=== PATIENT | female | born 1995 | race African-American/Black ===

== ENCOUNTER 2017-05-04 14:51 | Emergency (ER) | payer SELFPAY ==
[2017-05-04 14:52] VITALS: BP 111/65; PULSE 80; RESP 16; TEMP 98.7; O2SAT 100
--- NOTE | 2017-05-04 15:28 | PD ---
HPI Chief Complaint: Cold / Flu Symptoms Time Seen by Provider: 15:13 Travel History International Travel<30 days: No Contact w/Intl Traveler<30days: No Traveled to known affect area: No History of Present Illness HPI 21-year-old female presents to the emergency room for evaluation of chest pain, headache, and congestion for the past month. Patient states chest pain is intermittent, dull, located at the top of her sternum. Worse when she lies down or occasionally with deep breathing. No radiation of symptoms. States it has been gradually getting worse and worse especially over the past week. Headache is worse when she leans forward. Localized to the right side of her head. She has been taking Tylenol for her headache with excellent relief in symptoms but the headache keeps coming back. She has had associated nasal congestion and cough. Denies fever, chills, nausea, vomiting. No significant family history of cardiac disease; grandmother has CHF and previous heart attacks. Denies history of asthma or significant shortness of breath. Denies recent immobilization, recent long travel, unilateral leg swelling, exogenous estrogen use. PFSH Past Medical History ?: Not LMP: LAST WEEK Past Surgical History Tonsillectomy: Yes Social History Alcohol Use: Yes Tobacco Use: No Substance Use: Yes Allergies-Medications (Allergen,Severity, Reaction): Coded Allergies: No Known Allergies (Unverified , 05/04/17) Reported Meds & Prescriptions Reported Meds & Active Scripts Active No Active Prescriptions or Reported Medications Review of Systems Except as stated in HPI: all other systems reviewed are Neg Physical Exam Narrative GENERAL: Well-nourished, well-developed female in no acute distress. Afebrile. Ambulatory. SKIN: Focused skin assessment warm/dry. HEAD: Normocephalic. EYES: No scleral icterus. No injection or drainage. NECK: Supple, trachea midline. No JVD or lymphadenopathy. ENT: Mucosa pink and moist. No erythema or exudates. No uvular edema. No uvular , palatal, or tonsillar deviation. Airway patent. Nasal turbinates appear normal without nasal blood, purulent drainage or septal hematoma. EARS: Bilateral pinnae and external canals appear within normal limits. Bilateral tympanic membranes without erythema, dullness or perforation. CARDIOVASCULAR: Regular rate and rhythm without murmurs, gallops, or rubs. RESPIRATORY: Breath sounds equal bilaterally. No accessory muscle use. No crackles, rales, wheezes, or rhonchi. Data Data Last Documented VS Vital Signs Date Time Temp Pulse Resp B/P (MAP) Pulse Ox O2 Delivery O2 Flow Rate FiO2 05/04/17 14:52 98.7 80 16 111/65 (80) 100 Room Air Orders Orders Chest, Pa & Lat (05/04/17 ) Electrocardiogram (05/04/17 ) MDM Medical Decision Making Medical Screen Exam Complete: Yes Emergency Medical Condition: Yes Medical Record Reviewed: Yes Differential Diagnosis Sinusitis, unlikely, CAD unlikely, pleuritis, GERD Narrative Course 21-year-old female presents to the emergency room for evaluation of several, nonspecific complaints including ongoing for the past one month. Her greatest complaint is intermittent, dull, aching superior sternal chest pain without radiation. No associated cardiac symptoms. No significant family or personal history of cardiac disease. No significant risk factors for cardiac disease. EKG shows sinus rhythm with arrhythmia at 67 beats per minute. No ST changes. I have no suspicion for CAD. No increased work of breathing. Vital signs stable. Patient 100% on room air. Lung sounds clear and equal bilaterally. No risk factors for PE. Chest x-ray is completely unremarkable. Given symptoms have been ongoing for 1 month, I see no indication for emergent lab work at this time. Patient also complains of one-month history of right-sided head pressure and sinus pressure that is worse when she leans forward; in conjunction with mild cough and duration of symptoms, she'll be treated empirically for sinusitis. This could be contributing to her chest pain or she may be experiencing GERD. Discharged with prescriptions for Augmentin and omeprazole. Told to follow up with PCP or return for worsening symptoms. She understands and agrees to plan. Diagnosis Primary Impression: Sinusitis Qualified Codes: J01.40 - Acute pansinusitis, unspecified Additional Impression: Chest pain Qualified Codes: R07.89 - Other chest pain Referrals: Primary Care Physician Additional Instructions: Augmentin as directed, until gone. Omeprazole as directed. Follow-up with PCP for outpatient labs. Scripts No Active Prescriptions or Reported Meds Disposition: 01 DISCHARGE HOME Condition: Stable Amanda Choi May 04, 2017 15:28
--- NOTE | 2017-05-04 15:57 | RADRPT ---
EXAM DATE/TIME: 05/04/2017 15:46 [facility] COMPARISON: No previous studies available for comparison. INDICATIONS : Shortness of breath and chest pressure for 1 week. MEDICAL HISTORY : None. SURGICAL HISTORY : None. ENCOUNTER: Initial ACUITY: 1 week PAIN SCORE: 6/10 LOCATION: Bilateral chest FINDINGS: PA and lateral views of the chest demonstrate a normal-sized cardiac silhouette. There is no effusion , consolidation, or pneumothorax. The bones and soft tissues demonstrate no acute abnormality. CONCLUSION: No acute cardiopulmonary abnormality is identified. Pradeep Sher MD on May 04, 2017 at 15:55 Board Certified Radiologist. This report was verified electronically.
[2017-05-04] MEDS ORDERED: OMEP20TA93 PO (16:11)
[2017-05-04] MEDS ORDERED: AUGM875T3 PO (16:11)
--- NOTE | 2017-05-04 16:56 | EKG ---
Date Performed: 05/04/2017 Time Performed: 15:38:37 PTAGE: 21 years EKG: Sinus rhythm WITH SINUS ARRHYTHMIA NORMAL ECG INTERPRETATION BASED ON A DEFAULT AGE OF 42 YEARS NO PREVIOUS TRACING DOCTOR: Doc Bowen Interpretating Date/Time 05/04/2017 16:55:22
== END 2017-05-04 16:58 | disposition home or self-care (01) ==
LOC: NEPK 14:51
DX: J01.40 Acute pansinusitis, unspecified (principal); R07.89 Other chest pain
CPT/HCPCS: 71020; 93005; 99284

== ENCOUNTER 2017-06-22 17:30 | Emergency (ER) | payer MEDICAID ==
[~2017-06-22] VITALS: Ht 149.9 cm; Wt 70.0 kg
[~2017-06-22 17:30] MED LIST: AUGM875T3 PO; OMEP20TA93 PO
[2017-06-22 17:31] VITALS: BP 125/74; PULSE 77; RESP 16; TEMP 98.5; O2SAT 99
[2017-06-22 18:27] LABS: BASOPHIL % 0.4 % (0.0-2.0); EOSINOPHIL % 0.6 % (0.0-4.0); HEMATOCRIT 40.7 % (35.0-46.0); HEMOGLOBIN 13.8 GM/DL (11.6-15.3); LYMPH % 27.4 % (9.0-44.0); LYMPHOCYTE # 2.1 TH/MM3 (1.0-4.8); MEAN CELL VOLUME 88.1 FL (80.0-100.0); MEAN CORPUSCULAR HEMOGLOBIN 29.9 PG (27.0-34.0); MONO % 5.8 % (0.0-8.0); MONOCYTE # 0.4 TH/MM3 (0-0.9); NEUT % 65.8 % (16.0-70.0); PLATELET COUNT 264 TH/MM3 (150-450); RED BLOOD COUNT 4.62 MIL/MM3 (4.00-5.30); RED CELL DISTRIBUTION WIDTH 12.2 % (11.6-17.2); WHITE BLOOD COUNT 7.6 TH/MM3 (4.0-11.0)
[2017-06-22 18:43] LABS: BACTERIA, URINE MANY /hpf; BILIRUBIN, URINE NEG (NEG); BLOOD, URINE SMALL (NEG); GLUCOSE,URINE NEG (NEG); KETONE, URINE TRACE mg/dL (NEG); MUCUS URINE MANY /lpf (OCC); NITRITE,URINE NEG (NEG); PH, URINE 5.5 (5.0-8.5); SQUAMOUS EPITHELIAL CELL URINE 6 /hpf (0-5); URINE COLOR YELLOW (YELLW/STRAW); URINE LEUKOCYTE ESTERASE LARGE (NEG); WHITE BLOOD CELL CLUMPS FEW
[2017-06-22 18:50] LABS: ALBUMIN 4.2 GM/DL (3.4-5.0); ALT (GPT) 11 U/L (9-42); AST (GOT) 8 U/L (16-38); BICARBONATE 29.4 MEQ/L (21.0-32.0); BLOOD UREA NITROGEN 9 MG/DL (7-18); CALCIUM 8.8 MG/DL (8.5-10.1); CHLORIDE 107 MEQ/L (98-107); GLOMERULAR FILTRATION RATE 112 ML/MIN (>89); GLUCOSE,RANDOM 99 MG/DL (74-106); LIPASE 75 U/L (73-393); SODIUM (NA) 142 MEQ/L (136-145)
[2017-06-22 18:54] LABS: ALKALINE PHOSPHATASE 64 U/L (45-117); TOTAL BILIRUBIN ADULT 0.9 MG/DL (0.2-1.0); TOTAL PROTEIN 8.1 GM/DL (6.4-8.2)
[2017-06-22] MEDS ORDERED: BACT800T5 PO (20:22)
[2017-06-22] MEDS ORDERED: SULFAMETHOXAZOLE-TRIMETHOPRIM DS 800-160 MG TAB PO ONE (20:30)
--- NOTE | 2017-06-22 20:34 | PD ---
HPI . abdominal pain Chief Complaint: Abdominal Pain Time Seen by Provider: 20:08 Travel History International Travel<30 days: No Contact w/Intl Traveler<30days: No Traveled to known affect area: No History of Present Illness HPI 21 yo F presents to ED with cc of abdominal pain. She states her urine has been concentrated and had a bad smell for the last week. She denies burning, frequency or urgency. She is also complaining of vaginal bleeding but denies discharge. She states she has had irregular menstrual cycles her entire life varying in length from 3 days to 2 weeks, in heaviness from spotting to profuse bright red blood and varying in occurrence between 1 and 2 times a month. Her LMP started 06/05/17 and has continued till today. She denies as she has had one female partner for the past year. She has a history of chlamydia treated 2 years ago. [facility] Past Medical History Medical History: Denies Significant Hx Immunizations Current: Yes ?: Not LMP: 06/05/17 Past Surgical History Tonsillectomy: Yes Social History Alcohol Use: Yes Tobacco Use: No Substance Use: Yes Allergies-Medications (Allergen,Severity, Reaction): Coded Allergies: No Known Allergies (Unverified , 05/04/17) Reported Meds & Prescriptions Reported Meds & Active Scripts Active Bactrim DS (Sulfamethoxazole-Trimethoprim) 800-160 Mg Tab 1 Tab PO BID Omeprazole 20 Mg Tab 20 Mg PO DAILY Augmentin (Amoxicillin-Clavulanate) 875-125 Mg Tab 1 Tab PO BID Review of Systems General / Constitutional: No: Fever, Chills Genitourinary: Positive: Pelvic Pain, Dysmenorrhea, Menorrhagia, Metorrhagia, Vaginal Bleeding, No: Urgency, Frequency, Hematuria, Incontinence, Dyspareunia, Discharge Physical Exam Narrative GENERAL: young female in no acute distress, sitting comfortably in bed SKIN: Warm and dry. HEAD: Normocephalic. EYES: No scleral icterus. No injection or drainage. NECK: Supple, trachea midline. No JVD or lymphadenopathy. CARDIOVASCULAR: Regular rate and rhythm without murmurs, gallops, or rubs. RESPIRATORY: Breath sounds equal bilaterally. No accessory muscle use. GASTROINTESTINAL: Abdomen soft, nondistended. Mildly tender in bilateral pelvis MUSCULOSKELETAL: No cyanosis, or edema. BACK: Nontender without obvious deformity. No CVA tenderness. Data Data Last Documented VS Vital Signs Date Time Temp Pulse Resp B/P (MAP) Pulse Ox O2 Delivery O2 Flow Rate FiO2 06/22/17 20:29 06/22/17 17:31 98.5 77 16 99 Orders Orders Complete Blood Count With Diff (06/22/17 17:56) Comprehensive Metabolic Panel (06/22/17 17:56) Urinalysis - C+S If Indicated (06/22/17 17:56) Lipase (06/22/17 17:56) Beta Hcg (Quant/Titer) (06/22/17 17:56) Urine Culture (06/22/17 18:04) Ed Discharge Order (06/22/17 20:21) Sulfamet-Trimeth Ds 800-160 Mg (Bactrim (06/22/17 20:30) Labs Laboratory Tests Test 06/22/17 18:04 06/22/17 18:07 Urine Color YELLOW Urine Turbidity HAZY Urine pH 5.5 Urine Specific [place] 1.020 Urine Protein 30 mg/dL Urine Glucose (UA) NEG mg/dL Urine Ketones TRACE mg/dL Urine Occult Blood SMALL Urine Nitrite NEG Urine Bilirubin NEG Urine Urobilinogen 2.0 MG/DL Urine Leukocyte Esterase LARGE Urine RBC 14 /hpf Urine WBC /hpf Urine WBC Clumps FEW Urine Squamous Epithelial Cells 6 /hpf Urine Bacteria MANY /hpf Urine Mucus MANY /lpf Microscopic Urinalysis Comment CATH-CULTURE IND White Blood Count 7.6 TH/MM3 Red Blood Count 4.62 MIL/MM3 Hemoglobin 13.8 GM/DL Hematocrit 40.7 % Mean Corpuscular Volume 88.1 FL Mean Corpuscular Hemoglobin 29.9 PG Mean Corpuscular Hemoglobin Concent 34.0 % Red Cell Distribution Width 12.2 % Platelet Count 264 TH/MM3 Mean Platelet Volume 8.0 FL Neutrophils (%) (Auto) 65.8 % Lymphocytes (%) (Auto) 27.4 % Monocytes (%) (Auto) 5.8 % Eosinophils (%) (Auto) 0.6 % Basophils (%) (Auto) 0.4 % Neutrophils # (Auto) 5.0 TH/MM3 Lymphocytes # (Auto) 2.1 TH/MM3 Monocytes # (Auto) 0.4 TH/MM3 Eosinophils # (Auto) 0.0 TH/MM3 Basophils # (Auto) 0.0 TH/MM3 CBC Comment DIFF FINAL Differential Comment Blood Urea Nitrogen 9 MG/DL Creatinine 0.80 MG/DL Random Glucose 99 MG/DL Total Protein 8.1 GM/DL Albumin 4.2 GM/DL Calcium Level 8.8 MG/DL Alkaline Phosphatase 64 U/L Aspartate Amino Transf (AST/SGOT) 8 U/L Alanine Aminotransferase (ALT/SGPT) 11 U/L Total Bilirubin 0.9 MG/DL Sodium Level 142 MEQ/L Potassium Level 3.3 MEQ/L Chloride Level 107 MEQ/L Carbon Dioxide Level 29.4 MEQ/L Anion Gap 6 MEQ/L Estimat Glomerular Filtration Rate 112 ML/MIN Lipase 75 U/L Human Chorionic Gonadotropin, Quant LESS THAN 1 MIU/ML MDM Medical Decision Making Medical Screen Exam Complete: Yes Emergency Medical Condition: Yes Differential Diagnosis Urinary tract infection, pyelonephritis, cervicitis, abnormal uterine bleeding, fibroids, endometriosis, PID Narrative Course Patient presented with cc of foul smelling urine and abnormal uterine bleeding. CBC was within normal limits. She was found to have a UTI on urinalysis. CVA tenderness negative. She was treated with Bactrim and advised to follow up with outpatient at the [facility] for her chronic abnormal uterine bleeding. Diagnosis Primary Impression: UTI (urinary tract infection) Qualified Codes: N39.0 - Urinary tract infection, site not specified; R31.9 - Hematuria, unspecified Additional Impression: Menometrorrhagia Referrals: [facility] call for appointment Scripts Sulfamethoxazole-Trimethoprim (Bactrim DS) 800-160 Mg Tab 1 TAB PO BID for Infection, #6 TAB 0 Refills Prov: Sean Simmons MD 06/22/17 Disposition: DISCHARGE HOME Condition: Stable Sean Simmons MD Jun 22, 2017 20:34
== END 2017-06-22 21:10 | disposition home or self-care (01) ==
LOC: NEPD 17:30
DX: N39.0 Urinary tract infection, site not specified (principal); R31.9 Hematuria, unspecified; N92.1 Excessive and frequent menstruation with irregular cycle; B96.20 Unspecified Escherichia coli [E. coli] as the cause of diseases classified elsewhere
CPT/HCPCS: 80053; 81001; 83690; 84702; 85025; 87077; 87086; 87186; 99283

== ENCOUNTER 2017-07-30 04:33 | Emergency (ER) | payer MEDICAID, OTHER ==
[~2017-07-30] VITALS: Ht 149.9 cm; Wt 68.0 kg
[~2017-07-30 04:33] MED LIST changes: +BACT800T5 PO
[2017-07-30 04:38] VITALS: BP 120/81; PULSE 87; RESP 16; TEMP 97.5; O2SAT 100
[2017-07-30 05:11] VITALS: BP 110/74; PULSE 74; RESP 18; O2SAT 98
[2017-07-30 05:44] LABS: AUTOMATED NEUTROPHIL # 4.3 TH/MM3 (1.8-7.7); BASOPHIL % 0.5 % (0.0-2.0); EOSINOPHIL # 0.1 TH/MM3 (0-0.4); HEMATOCRIT 38.9 % (35.0-46.0); HEMOGLOBIN 13.5 GM/DL (11.6-15.3); LYMPH % 36.5 % (9.0-44.0); MEAN CELL VOLUME 88.7 FL (80.0-100.0); MEAN CORPUSCULAR HEMOGLOBIN 30.7 PG (27.0-34.0); MEAN CORPUSCULAR HGB CONC 34.6 % (32.0-36.0); MEAN PLATELET VOLUME 8.1 FL (7.0-11.0); MONO % 9.2 % (0.0-8.0); MONOCYTE # 0.8 TH/MM3 (0-0.9); NEUT % 52.8 % (16.0-70.0); PLATELET COUNT 248 TH/MM3 (150-450); RED BLOOD COUNT 4.39 MIL/MM3 (4.00-5.30); RED CELL DISTRIBUTION WIDTH 12.3 % (11.6-17.2); WHITE BLOOD COUNT 8.2 TH/MM3 (4.0-11.0)
[2017-07-30 05:59] LABS: ALBUMIN 3.9 GM/DL (3.4-5.0); AST (GOT) 7 U/L (16-38); BACTERIA, URINE MANY /hpf; BICARBONATE 27.5 MEQ/L (21.0-32.0); BILIRUBIN, URINE NEG (NEG); BLOOD UREA NITROGEN 11 MG/DL (7-18); BLOOD, URINE NEG (NEG); CALCIUM 8.6 MG/DL (8.5-10.1); CHLORIDE 103 MEQ/L (98-107); CREATININE 0.82 MG/DL (0.50-1.00); GLOMERULAR FILTRATION RATE 108 ML/MIN (>89); GLUCOSE,RANDOM 84 MG/DL (74-106); GLUCOSE,URINE NEG (NEG); KETONE, URINE NEG (NEG); MUCUS URINE MANY /lpf (OCC); NITRITE,URINE POS (NEG); SODIUM (NA) 140 MEQ/L (136-145); SQUAMOUS EPITHELIAL CELL URINE 1 /hpf (0-5); URINE COLOR YELLOW (YELLW/STRAW); URINE LEUKOCYTE ESTERASE TRACE (NEG)
[2017-07-30 06:00] LABS: ALT (GPT) 11 U/L (9-42)
[2017-07-30 06:02] LABS: ALKALINE PHOSPHATASE 65 U/L (45-117); TOTAL BILIRUBIN ADULT 0.4 MG/DL (0.2-1.0); TOTAL PROTEIN 7.5 GM/DL (6.4-8.2)
--- NOTE | 2017-07-30 06:26 | PD ---
HPI Chief Complaint: Abdominal Pain Time Seen by Provider: 05:35 Travel History International Travel<30 days: No Contact w/Intl Traveler<30days: No Traveled to known affect area: No History of Present Illness HPI 22-year-old female complains of left lower quadrant abdominal pain. Patient states that the pain started tonight. Patient stated the pain is cramping pain localized to left lower quadrant of the abdomen. Patient denies any pain radiation. Patient denies any dysuria frequency. Patient states that she has vaginal discharge for the past 2 weeks. Patient denies any back pain. Patient denies any chance of being . PFS Past Medical History Medical History: Denies Significant Hx Immunizations Current: Yes Tetanus Vaccination: > 5 Years Influenza Vaccination: No ?: Not LMP: 07/15/17 Past Surgical History Tonsillectomy: Yes Social History Alcohol Use: Yes (socially) Tobacco Use: No Substance Use: No Allergies-Medications (Allergen,Severity, Reaction): Coded Allergies: No Known Allergies (Unverified , 07/30/17) Reported Meds & Prescriptions Reported Meds & Active Scripts Active No Active Prescriptions or Reported Medications Review of Systems General / Constitutional: No: Fever Eyes: No: Visual changes HENT: No: Headaches Cardiovascular: No: Chest Pain or Discomfort Respiratory: No: Shortness of Breath Gastrointestinal: Positive: Abdominal Pain Genitourinary: No: Dysuria Musculoskeletal: No: Pain Skin: No Rash Neurologic: No: Weakness Psychiatric: No: Depression Endocrine: No: Polydipsia Hematologic/Lymphatic: No: Easy Bruising Physical Exam Narrative GENERAL: Well-nourished, well-developed patient. SKIN: Focused skin assessment warm/dry. HEAD: Normocephalic. EYES: No scleral icterus. No injection or drainage. NECK: Supple, trachea midline. No JVD or lymphadenopathy. CARDIOVASCULAR: Regular rate and rhythm without murmurs, gallops, or rubs. RESPIRATORY: Breath sounds equal bilaterally. No accessory muscle use. GASTROINTESTINAL: Abdomen soft, nondistended. Patient has moderate tenderness on palpation left lower quadrant of the abdomen. No rebound tenderness. No mass. MUSCULOSKELETAL: No cyanosis, or edema. BACK: Nontender without obvious deformity. No CVA tenderness. TISSUE COORDINATOR exam: Patient has a large amount of whitish discharge from the vaginal vault. Positive cervical motion tenderness. Uterus is not enlarged with moderate tenderness on palpation. No adnexal mass or tenderness. Data Data Last Documented VS Vital Signs Date Time Temp Pulse Resp B/P (MAP) Pulse Ox O2 Delivery O2 Flow Rate FiO2 07/30/17 05:11 74 18 110/74 (86) 98 Room Air 07/30/17 04:38 97.5 Orders Orders Basic Metabolic Panel (Bmp) (07/30/17 05:19) Complete Blood Count With Diff (07/30/17 05:19) Comprehensive Metabolic Panel (07/30/17 05:19) Lipase (07/30/17 05:19) Urinalysis - C+S If Indicated (07/30/17 05:19) Iv Access Insert/Monitor (07/30/17 05:19) Ed Urine Pregnancytest Poc (07/30/17 05:19) Urine Culture (07/30/17 05:25) Gc And Chlamydia Pcr (07/30/17 06:18) Wet Prep Profile (07/30/17 06:18) Azithromycin Powd Pack (Zithromax Powd P (07/30/17 06:45) Rocephin 250mg Vial Im X 1 (07/30/17 06:45) Lidocaine 1% Inj (50 Ml) (Xylocaine 1% I (07/30/17 06:45) Labs Laboratory Tests Test 07/30/17 05:25 White Blood Count 8.2 TH/MM3 Red Blood Count 4.39 MIL/MM3 Hemoglobin 13.5 GM/DL Hematocrit 38.9 % Mean Corpuscular Volume 88.7 FL Mean Corpuscular Hemoglobin 30.7 PG Mean Corpuscular Hemoglobin Concent 34.6 % Red Cell Distribution Width 12.3 % Platelet Count 248 TH/MM3 Mean Platelet Volume 8.1 FL Neutrophils (%) (Auto) 52.8 % Lymphocytes (%) (Auto) 36.5 % Monocytes (%) (Auto) 9.2 % Eosinophils (%) (Auto) 1.0 % Basophils (%) (Auto) 0.5 % Neutrophils # (Auto) 4.3 TH/MM3 Lymphocytes # (Auto) 3.0 TH/MM3 Monocytes # (Auto) 0.8 TH/MM3 Eosinophils # (Auto) 0.1 TH/MM3 Basophils # (Auto) 0.0 TH/MM3 CBC Comment DIFF FINAL Differential Comment Urine Color YELLOW Urine Turbidity HAZY Urine pH 6.0 Urine Specific [place] 1.027 Urine Protein TRACE mg/dL Urine Glucose (UA) NEG mg/dL Urine Ketones NEG mg/dL Urine Occult Blood NEG Urine Nitrite POS Urine Bilirubin NEG Urine Urobilinogen 2.0 MG/DL Urine Leukocyte Esterase TRACE Urine RBC 1 /hpf Urine WBC 3 /hpf Urine Squamous Epithelial Cells 1 /hpf Urine Bacteria MANY /hpf Urine Mucus MANY /lpf Microscopic Urinalysis Comment CULTURE INDICATED Blood Urea Nitrogen 11 MG/DL Creatinine 0.82 MG/DL Random Glucose 84 MG/DL Total Protein 7.5 GM/DL Albumin 3.9 GM/DL Calcium Level 8.6 MG/DL Alkaline Phosphatase 65 U/L Aspartate Amino Transf (AST/SGOT) 7 U/L Alanine Aminotransferase (ALT/SGPT) 11 U/L Total Bilirubin 0.4 MG/DL Sodium Level 140 MEQ/L Potassium Level 3.8 MEQ/L Chloride Level 103 MEQ/L Carbon Dioxide Level 27.5 MEQ/L Anion Gap 10 MEQ/L Estimat Glomerular Filtration Rate 108 ML/MIN Lipase 92 U/L [facility] Medical Decision Making Medical Screen Exam Complete: Yes Emergency Medical Condition: Yes Interpretation(s) 6:25 AM. Urine test negative. CBC within normal limits. CMP within normal limits. UA positive for bacteria. Differential Diagnosis Differential diagnosis including UTI, pyelonephritis, nephrolithiasis, colitis, ovarian cyst, ovarian torsion, ectopic . Narrative Course 22-year-old female with left lower quadrant abdominal pain. Rocephin 250 mg IM. Zithromax 1 g p.o. Diagnosis Primary Impression: Cervicitis Patient Instructions: General Instructions Med/Other Pt SpecificInfo: Prescription(s) given Scripts Metronidazole (Flagyl) 500 Mg Tab 2000 MG PO ONCE for Infection, #4 TAB 0 Refills Prov: Matthew Cantu MD 07/30/17 Disposition: DISCHARGE HOME Condition: Stable Matthew Cantu MD Jul 30, 2017 06:26
[2017-07-30] MEDS ORDERED: AZITHROMYCIN PWD FOR SUSP 1 GM PACKET PO ONE (06:45)
[2017-07-30] MEDS ORDERED: cefTRIAXone 250 MG VIAL IM ONE (06:45)
[2017-07-30] MEDS ORDERED: LIDOCAINE HCL 1% 50 ML VIAL IM ONE (06:45)
[2017-07-30] MEDS ORDERED: METR-1 PO (06:49)
== END 2017-07-30 07:38 | disposition home or self-care (01) ==
LOC: NEPE 04:33
DX: N72 Inflammatory disease of cervix uteri (principal)
CPT/HCPCS: 80053; 81001; 83690; 84703; 85025; 87077; 87086; 87186; 87210; 87491; 87591; 96372; 99283; J0696